=== PATIENT | female | born 1995 | race Hispanic/Latino ===

== ENCOUNTER 2024-03-08 | Emergency (ER) | payer OTHER, SELFPAY ==
[2024-03-08 00:05] VITALS: BP 108/66; PULSE 71; RESP 15; TEMP 37; O2SAT 97; BMI 32.8
--- NOTE | 2024-03-08 00:11 | ED.GENADULT ---
HPI - General Adult General Chief complaint: Extremity Injury, Upper Stated complaint: finger laceration Time Seen by Provider: 03/08/24 00:03 Source: patient Mode of arrival: Ambulatory History of Present Illness HPI narrative: Patient is a 28-year-old female here for evaluation of a cut to her right middle finger. It occurred while she was at work. She cut it on a piece of glass. She would tried to clean it out prior to coming here in the ER. Related Data Home Medications Medication Instructions Recorded Confirmed No Known Home Medications 03/08/24 03/08/24 Allergies Allergy/AdvReac Type Severity Reaction Status Date / Time No Known Drug Allergies Allergy Verified 03/08/24 00:04 Review of Systems Musculoskeletal Musculoskeletal: Reports system reviewed and no additional complaints, except as documented Integumentary/Breasts Skin/Breast: Reports system reviewed and no additional complaints, except as documented Neurologic Neurologic: Reports system reviewed and no additional complaints, except as documented Patient History Social History Smoking Status: Never smoker Smoking Status: Never smoker alcohol intake frequency: holidays/special occasions only Substance Use Type: does not use Exam Initial Vital Signs Initial Vital Signs: Vital Signs Temperature 98.6 F 03/08/24 00:05 Pulse Rate 71 03/08/24 00:05 Respiratory Rate 15 03/08/24 00:05 Blood Pressure 108/66 03/08/24 00:05 Pulse Oximetry 97 03/08/24 00:05 Oxygen Delivery Method Room Air 03/08/24 00:05 Skin Other: 2 cm total length flap cut to the volar aspect of the right middle finger between the MCP and PIP joint. Neuro Sensory Exam: no sensory deficits noted Procedures Laceration Repair Laceration 1: Site: hand Side (If applicable): right Size (cm): 2 Description: flap Depth: simple, single layer Pre-repair: wound explored, irrigated extensively and deep structures intact Skin layer closed with: dermabond Course Vital Signs Vital signs: Vital Signs - 8 hr 03/08/24 00:05 Temperature 98.6 F Pulse Rate 71 Respiratory Rate 15 Blood Pressure 108/66 Pulse Oximetry 97 Oxygen Delivery Method Room Air Medical Decision Making MDM Narrative Medical decision making narrative: Neurovascularly intact, no foreign body noted. Wound was closed with Dermabond and Steri-Strips. Patient was given care instructions. She expressed understanding and agreement. Discharge Plan Departure Patient Disposition: Home Clinical Impression: Laceration of finger of right hand Instructions: DI for Laceration Repair-Skin Glue Activity Restrictions/Additional Instructions: You can wash your hands like normal however do not soak your hands and anything until the wound is healed what should be over the next several days. Return to the emergency department for new symptoms. Prescriptions: No Action No Known Home Medications Stand Alone Forms: Patient Portal/API
--- NOTE | 2024-03-08 00:59 | PC.NURSE ---
Badaid applied to wound.
[2024-03-08 01:00] VITALS: BP 104/70; PULSE 72; RESP 16; TEMP 36.6; O2SAT 98
== END 2024-03-08 01:01 | disposition home or self-care (01) ==
PROVIDERS: Emergency Provider Emergency Medicine
DX: S61.212A Laceration without foreign body of right middle finger without damage to nail, initial encounter (principal); W25.XXXA Contact with sharp glass, initial encounter
CPT/HCPCS: 12001; 99281; 99282